=== PATIENT | female | born 1985 ===

== ENCOUNTER 2025-05-31 11:05 | Outpatient (CLI) | payer OTHER, SELFPAY ==
--- NOTE | ~2025-05-31 | US_ITS ---
EXAMINATION: US pelvic complete w TV, 05/31/2025 11:09 CDT HISTORY: Secondary amenorrhea Comparison: None Technique: Abraham-scale and color Doppler images were obtained. Findings: Uterus: The uterus is anteverted measuring 8.9 x 2.5 x 5.4 cm with multiple fibroids identified the largest pedunculated in appearance arising from the fundus measuring 4 x 4 cm. . Endometrium 8 mm. Right Ovary:Right ovary 2.2 x 1.6 x 3 cm, no adnexal mass: Normal flow. Left Ovary: Left ovary 2.5 x 2.3 x 2.6 cm, no adnexal mass, normal flow. Free Fluid: None Impression: 1. Uterine fibroids. No etiology to explain the patient's symptoms Reviewed, dictated and finalized at location A. Impression: 1. Uterine fibroids. No etiology to explain the patient's symptoms
== END 2025-05-31 11:06 | disposition home or self-care (01) ==
LOC: MICIMG 11:07
PROVIDERS: PCP Advanced Practice Midwife; Visit Provider Advanced Practice Midwife
DX: N91.1 Secondary amenorrhea (principal); D25.9 Leiomyoma of uterus, unspecified
CPT/HCPCS: 76830; 76856